=== PATIENT | male | born 1975 | race Caucasian/White ===

== ENCOUNTER 2019-04-15 23:32 | Emergency (ER) | payer OTHER, SELFPAY ==
[2019-04-15 23:33] VITALS: BP 127/79; PULSE 73; RESP 16; TEMP 36.5; O2SAT 98; BMI 25.1
--- NOTE | 2019-04-15 23:39 | ED.RN ---
SPOKE WITH COURTNEY BLACKMAN WITH [employer] WHO STATES THAT THIS PT DOES NOT REQUIRE DRUG SCREENING.
--- NOTE | 2019-04-15 23:41 | EKG12_ITS ---
Test Reason : ARHYTHMIA Blood Pressure : / mmHG Vent. Rate : 066 BPM Atrial Rate : 066 BPM P-R Int : 144 ms QRS Dur : 102 ms QT Int : 382 ms P-R-T Axes : 016 043 034 degrees QTc Int : 400 ms Normal sinus rhythm Normal ECG Confirmed by SABA WILCOX, VINI ([id number]), editorial project manager ION GARZA ([id number]) on 04/17/2019 1:29:51 PM Referred By: JOSE ENRIQUE Confirmed By:SUSSY WALTER MD
--- NOTE | 2019-04-15 23:45 | ED.RN ---
NO OLD EKGS IN MUSE
--- NOTE | 2019-04-15 23:51 | ED.DCSUM_ITS ---
- ER Visit Summary Date of Service: 04/15/19 Chief Complaint: Electric shock History of Present Illness: The patient is a 44 M presenting after electric shock. This occurred 2 hours prior to arrival. Patient was at work. He was changing a light fixture. He believes it was 110 V. He states the power was off. He sustained a brief shock to his left hand. He did not fall. He had no syncope. He denies chest pain. Denies numbness or tingling. Denies weakness. Denies complaints. He states his work requires EKG after any electric shock. Physical Examination: Vitals are stable. Patient is afebrile. Alert no acute distress. HEENT exam is unremarkable. Neck is supple. Lungs are clear and equal bilaterally. Heart is regular rate and rhythm. Abdomen is soft nontender nondistended. Extremities are unremarkable. Skin is warm and dry. No focal neurologic deficit. Normal strength and sensation Remainder of exam is unremarkable. Emergency Department Course and Treatment: EKG is sinus rhythm rate of 66 with no acute ischemic changes. Patient is asymptomatic in the ED. Advised to follow-up with corporate care as needed. Advised return to ED for worsening complaints. Disposition: Discharge home Impression: Electric shock This note was generated with [employer] dictation software. It may contain incorrect words, spelling, and punctuation that were not noted in review of the chart prior to signing ED Disposition - Plan for ED Patient: Referrals: Jyotsna Thomas DO [Primary Care Provider] -
--- NOTE | 2019-04-15 23:53 | DCINST.ED_ITS ---
ED Disposition - Plan for ED Patient: Instructions: Electrical Injury Referrals: Jyotsna Thomas DO [Primary Care Provider] - [facility] [GROUP OF PHYSICIANS] -
[2019-04-16 00:08] VITALS: BP 126/70; PULSE 76; RESP 18; O2SAT 97
== END 2019-04-16 00:09 | disposition home or self-care (01) ==
LOC: ED 04-16 00:03
PROVIDERS: Emergency Provider Emergency Medicine; Family Provider Internal Medicine; PCP Internal Medicine
DX: T75.4XXA Electrocution, initial encounter (principal); W86.8XXA Exposure to other electric current, initial encounter; Y93.9 Activity, unspecified; Y92.9 Unspecified place or not applicable
CPT/HCPCS: 93005; 99283

== ENCOUNTER 2020-02-26 14:30 | Outpatient (RCR) | payer OTHER, SELFPAY ==
--- NOTE | 2020-01-15 14:48 | HP.PTEVAL_ITS ---
Patient's Visit Information CARLOS PEREZ is a 44 year old M referred to Physical Therapy by Dr. Niyah Burciaga MD with a diagnosis of LEFT SHOULDER PAIN,FROZEN. Date of Evaluation: 01/15/20 Physical Therapist: Jim Abraham PT, Cert MDT, OCS - Visit Plan Frequency: 2x /Week Duration: 4 Weeks Plan: PATIENT APPEARED TO HAVE RTC TEAR. INTIALLY ROM,PROM,AAROM,MANUAL THERAPY,MODALTIES, PROGRESS RTC/SCAPUALR EX'S ABLE - Subjective This 44 y/o male presents to physical therapy with left shoulder pain,frozen. Patient had left shoulder pain about 1 weeks which has progressively worse. Patient symptoms became worse with intemttant symptoms and currently more contsant. Patient had x-rays -and mloxicam and injection shoulder. Recoommended PT. Agraveting factors any activity with OH above 90 degrees,ADL'S and hosuework task,inablity to raise arm at all.. Patient symptoms affects sleeping. No ho trauma inicidous onset of shoulder pain.Occassionally symptoms tingling. Patient pain affects QOL.Location AC and ache bicep. SOCIAL: single. VOCATION: layed off [employer] - Pain Left Shoulder Pain Intensity (Out of 10): 7 Pain Intensity Range: 10 - Objective POSTURE: mild foward postute. NEURO : intact ,reflexes ntact,mytomes. AROM: unable. PROM: pain flexion 100 degrees,abd 105 degrees,ER 25 degrees,all with pain. CAPSULAR RESTRICTION: mod tight. MMT: infraspaintous 1/5,supraspinatous 1/5 ,subscapularis 4-5/,deltoid 1/5. CERVICAL ROM: WFL - Special Tests C/S Radiculapathy - Left Upper limb tension test: Negative C/S Radiculapathy - Right Upper limb tension test: Negative C/S Radiculapathy - Left Spurlings: Negative C/S Radiculapathy - Right Spurlings: Negative L Shoulder External Rotation Lag Test - RC Tear: Positive L Shoulder Supine Impingement Test - RC Tear: Positive L Shoulder Drop Sign - IS Test: Positive L Shoulder Empty Can - SS: Positive L Shoulder Belly Press - SupScap: Negative L Shoulder Neer - Impingement: Positive L Shoulder Rutherford Bernardo - Impingement: Positive - Goals Goal 1:: Patient progress to JUAREZ. Goal Time Frame: 2-4 Weeks Goal 2:: Decrease pain left shoulder by 50% or > to improve function Goal Time Frame: 2-4 Weeks Goal 3:: Patient to improve ROM as april for function. Goal Time Frame: 2-4 Weeks Goal 4:: Patient to increase strength 3/5 to improve function. Goal Time Frame: 2-4 Weeks Goal 5:: Patient to inmpove quick dash by 5 points or> to improve QOL. Goal Time Frame: 2-4 Weeks - Rehabilitation Potential Physical Therapy Diagnosis: This patient has + signs of RTC ,+ drop test ,supr sapinatous,lift off weakness infraspintous,supraspinatous ,along with adhesive capsular pain with any activities with use of left shoulder no movement .Mytomes intact. Could benifit from MRI. Rehabilitation Potential: Fair - Anticipated Interventions Patient/Client Instruction: Educate patient on: Condition, Plan of Care For the Purpose of:: To decrease pain, To increase ROM, To improve nutrient delivery to tissue, To increase oxygenation perfusion, To improve muscle performance and motor function, To improve ability to perform ADL's, To improve health of tissue, To decrease soft tissue restriction, To increase flexibility/ROM, To improve tolerance to ADL's Therapeutic Exercise to Include: Strength training, Active ROM, Scapular Strength/Stabilization Comment: rtc/scapular For the Purpose of:: To decrease swelling/inflammation, To increase ROM, To improve ability to perform ADL's, To increase tolerance to activity/condition/position, To improve ability of physical actions for home/community/work/leisure, To improve health of tissue, To decrease soft tissue restriction, To improve ability to perform tasks related to life management Manual Therapy Techniques to Include: Mobilization, Passive ROM Comment: G-H For the Purpose of:: To decrease pain, To increase ROM, To improve nutrient delivery to tissue, To increase oxygenation perfusion, To improve health of tissue, To decrease soft tissue restriction TENS: Yes Other electric stimulation: Yes Thermo therapy (hot pack): Yes Ultrasound (thermal/non thermal): Yes For the Purpose of:: To decrease pain, To increase ROM, To improve nutrient delivery to tissue, To increase oxygenation perfusion Thank you for the opportunity to evaluate your patient. For Medicare and Medicare HMO plans, please review the plan of care and approve it. It will need to be FAXED BACK to us at [phone] for Medicare purposes. For Medicare only, by signing this I certify the plan of care. Please let me know if there are questions or concerns regarding this plan of care. Physician Signature: Date:
--- NOTE | 2020-06-24 10:53 | HP.PTDCSUM_ITS ---
It has been my pleasure to treat CARLOS PEREZ referred by Dr. Niyah Burciaga MD, with the diagnosis of LEFT SHOULDER PAIN,FROZEN for a total of 10 visit(s). Discharge Date: Please see the following information for a summary of their discharge status. Subjective: Doing good . Seen DR campos to see [facility]. Patient has return Left Shoulder Pain Intensity (Out of 10): 1 % Improvement: 80 Objective/Function: AROM: SHOULDER FLEXION 150 DEGREES,ABD 150 IN SCAPTION ER 90 degrees. MMT: RTC 4/5 exept supraspinatous4-/5,deltoid 4-/5 mild pain ,but does have + speeds with weakness and pain. patient has made excellant progress intiall evaluation Goal 1:: Patient progress to JUAREZ. Goal 2:: Decrease pain left shoulder by 50% or > to improve function Goal 3:: Patient to improve ROM as april for function. Goal 4:: Patient to increase strength 3/5 to improve function. Goal 5:: Patient to inmpove quick dash by 5 points or> to improve QOL. Plan: See ortho eventhogh doing well. MANUAL THERAPY,MODALTIES, PROGRESS RTC/SCAPUALR EX'S ,POSTURAL EX''S If there are questions or concerns regarding this patient's physical therapy, please feel free to call me at [phone]. Thank you for the referral of this patient. Sincerely, Jim Abraham, PT, Cert MDT, OCS
== END 2020-02-26 19:00 | disposition home or self-care (01) ==
LOC: PT 14:30
PROVIDERS: PCP Internal Medicine; Referring Provider Internal Medicine; Visit Provider Internal Medicine
DX: M25.512 Pain in left shoulder (principal)
CPT/HCPCS: 97014; 97035; 97110; 97140; 97161; G0283

== ENCOUNTER 2021-01-24 06:04 | Emergency (ER) | payer OTHER, SELFPAY ==
--- NOTE | 2021-01-24 06:05 | CT_ITS ---
STUDY: CT BRAIN WITHOUT CONTRAST REASON FOR EXAM: Male, 45 years old. Trauma RADIATION DOSAGE (If Supplied By Facility): CTDIvol = ( 44.99 ) mGy, DLP = ( 812.98 ) mGycm TECHNIQUE: Transaxial CT imaging of the brain was performed without administration of intravenous contrast material. Individualized dose optimization techniques were used for this CT. COMPARISON: 01/24/2021 CT facial bone FINDINGS: There is left side periorbital soft tissue edema and gas. There is gas bubbles anterior preseptal space and posterior to the left eye and intraconal space. Fracture line is not definitively visualized but suggested at the level of the medial orbit or lamina papyracea given the amount of gas formation demonstrated. There is a suggestion of defect in the left eyelid. Normal size ventricles and extra-axial spaces for the patient''s age. Normal white matter tracts of the cerebral hemispheres. Normal basal ganglia and thalami. Normal brainstem. Normal cerebellum. There is no intracranial hemorrhage. There are no findings of an acute ischemic infarction. Normal visualized paranasal sinuses. CT/Brain/Head without Contrast IMPRESSION: Left periocular gas formation and probable laceration in the superficial soft tissues. Question possible subtle fracture of the lamina papyracea. The visualized intraocular hemorrhage. Recommend consideration for ophthalmology consult. Electronically Signed: Margo Chandler MD at 6:47 EDT Tel , Service support ,
--- NOTE | 2021-01-24 06:05 | CT_ITS ---
STUDY: CT FACIAL BONES WITHOUT CONTRAST REASON FOR EXAM: Male, 45 years old. Trauma RADIATION DOSAGE (If Supplied By Facility): CTDIvol = ( 29.38 ) mGy, DLP = ( 591.53 ) mGycm TECHNIQUE: The patient was scanned in a multi detector CT scanner. Sagittal and coronal images were reconstructed. Individualized dose optimization techniques were used for this CT. COMPARISON: None. FINDINGS: There is left-sided periorbital superficial soft tissue edema and laceration. There is the level of the left thigh. There is gas and intraconal and extraconal spaces. There is a suggestion of possible fracture of the lamina papyraceous. The right ovary appears normal. There is no visually significant proptosis. Normal visualized paranasal sinuses. CT/Sinus/Facial Bone IMPRESSION: Extraconal gas soft tissue edema left eyelid laceration. No definitive intra-articular hemorrhage. Cannot exclude extension into the lamina papyracea. Electronically Signed: Margo Chandler MD at 6:51 EDT Tel , Service support ,
[2021-01-24 06:06] VITALS: BP 136/86; PULSE 77; RESP 16; TEMP 36.9; O2SAT 95; BMI 25.3
--- NOTE | 2021-01-24 06:10 | EDS_ITS ---
HPI History of Present Illness Chief Complaint: Eye Problem Informant: patient Onset/Context/Timing Location: Left Eye Onset: Today Current Severity: Moderate Maximum Severity: Moderate Associated Symptoms Associated Symptoms - Eyes: Burning, Foreign body sensation and Pain Visual Changes: left: Blurred vision History of injury: Yes and Direct trauma Narrative Narrative: Patient is a 45-year-old male with no significant medical history aside from cataract surgery the presents to the emergency department with left eye injury. 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 He states that he was taking parts off of hooks after they were painted. He states when he moved a hole, it lurched forward. It punctured into his eye and he suffered significant laceration. He does describe blurry and cloudy vision in that eye. Dressing was applied immediately and he was brought here. There is no loss of consciousness. He is not on anticoagulants. [facility] Medical History High triglycerides Home Medications NK 01/24/21 [History Last Taken Unknown] Allergy/AdvReac Type Severity Reaction Status Date / Time No Known Allergies Allergy Verified 04/15/19 23:32 Social History Smoking Status: Never smoker ROS ROS ED Constitutional Constitutional ED: Denies chills or fever(s) Eyes Eyes: Reports blurry vision and change in vision ENT ENT ED: Denies ear pain or sore throat Cardiovascular Cardiovascular: Denies chest pain or palpitations Respiratory/Chest Respiratory/Chest: Denies cough, dyspnea or dyspnea on exertion Gastrointestinal Gastrointestinal: Denies abdominal pain, nausea or vomiting Genitourinary Genitourinary ED: Denies dysuria or urinary frequency Musculoskeletal Musculoskeletal: Denies arthralgias or myalgias Integumentary Denies rash Neurologic Neurologic: Denies headache(s) or paresthesias Psychiatric Psychiatric: Denies anxiety or depression Endocrine Endocrinology: Denies polydipsia or polyuria Allergic/Immunologic Allergic/Immunologic ED: Denies urticaria EXAM Physical Exam Const Vital Signs: 01/24/21 06:06 Temperature 98.4 F Temperature Source Temporal Pulse Rate 77 Respiratory Rate 16 Blood Pressure 136/86 H Blood Pressure Mean 102 Pulse Ox 95 Oxygen Delivery Method Room Air Positive well nourished and well developed General Appearance ED: well developed HEENT Reports normocephalic, head/scalp atraumatic and moist mucous membranes Eyes PERRL and EOMs intact bilaterally Eyes Narrative: The patient has rather significant laceration with basic degloving of the entire left lid. The globe itself appears mildly sunken. There is no hyphema. There is persistent bleeding. The pupil is reactive. Neck no lymphadenopathy and supple General: Negative for tenderness Chest Wall inspection of chest normal Resp normal respiratory effort and clear to auscultation bilaterally Cardio regular rate, regular rhythm and no murmurs GI normal to inspection, nondistended, normoactive bowel sounds Palpation: Negative for tender, guarding or rebound tenderness present Back/Spine no CVA tenderness Cervical Spine: Negative for cervical spine tenderness Thoracic Spine / Upper Back: Negative for thoracic spinal tenderness Extremity normal to inspection General Extremety ED: Negative for tenderness Neuro oriented x3 and CN's II-XII intact bilaterally Neuro Narrative: No focal deficits appreciated. Sensorium / Orientation: alert Psych mental status grossly normal Skin no rashes or lesions noted, no wounds and skin turgor normal MDM MDM MDM Narrative Medical decision making narrative: Patient presents with globe injury. There is also significant injury to the eyelid itself. I immediately discussed the patient with [facility] for transfer as he is going to need emergent ophthalmology evaluation due to concern for globe rupture. Unfortunately, we were not able to confirm that they have ophthalmology coverage. Because of this, I did elect to transfer the patient to [facility]. He was discussed with Dr. Crowell the trauma surgeon. The patient was accepted. CT images were done and reads are currently pending. The patient be transferred i mmediately for trauma and ophthalmology evaluation. Impression 1. Complex eye laceration 2. Globe injury Discharge Plan Triage Chief Complaint: Eye Problem ED Provider: Momo Christianson Dx/Rx/DC Orders Prescriptions: No Action NK RF: 0 Primary Care Provider: Jyotsna Thomas
[2021-01-24] MEDS: Morphine 4 MG/ML Syringe IV (06:16)
[2021-01-24] MEDS: Ondansetron 4 MG/2 ML Vial IV (06:16)
[2021-01-24 06:55] VITALS: BP 136/86; PULSE 77; RESP 16; TEMP 36.9; O2SAT 95
== END 2021-01-24 07:02 | disposition short-term general hospital (02) ==
LOC: ED 06:57
PROVIDERS: Emergency Provider Emergency Medicine; PCP Internal Medicine
DX: S05.32XA Ocular laceration without prolapse or loss of intraocular tissue, left eye, initial encounter (principal); S01.112A Laceration without foreign body of left eyelid and periocular area, initial encounter; W45.8XXA Other foreign body or object entering through skin, initial encounter; Y93.9 Activity, unspecified; Y92.9 Unspecified place or not applicable
CPT/HCPCS: 70450; 70486; 96374; 96375; 99285; J2405

== ENCOUNTER 2022-05-31 10:00 | Outpatient (RCR) | payer BC, SELFPAY ==
--- NOTE | 2022-04-25 16:03 | HP.PTEVAL_ITS ---
Patient's Visit Information CARLOS PEREZ is a 47 year old M referred to Physical Therapy by Dr. Jyotsna Thomas DO with a diagnosis of LBP. Date of Evaluation: 04/25/22 Physical Therapist: Samir Navarro, SIDT, OCS, CSCS - Visit Plan Frequency: 2x /Week Duration: 4-6 Weeks Plan: 2x/week for 4-6 weeks... please rollout and stretch/teach stretches for B quads and HS. core strength via exercises pt can do at home and progress to home I. Ext bias ROM to LB and mobs as needed. may use TENS if needed - Subjective LBP chronic for years since HS. Not sure why it hurts. X ray: nothing there. This can be daily and then may go away for a while. Sleeping is fine but morning is stiff and sore. Lying down can hurt. 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 Feels stiff. Hobbies include working on house and running. These are normal perfomrance but do not make him worse. He focuses on his body mechanics. Activities at home are normal. Not sure what the pattern is . Stiff and painful to get to standing if he has been sitting a while. no regular exercises. Therapy did not completely take care of it in the past. No leg symptoms, intermittent tingling R thigh. No bowel or bladder problems. - Pain LBP Pain Intensity (Out of 10): 0 Pain Intensity Range: 0, 4 - Objective Walks and transition I, steps I. reflexes 2.3 patella and achilles. Sensation LE WNL to gross lgiht touch. LE strength 4- abd and ext, 4 knee flex/ext, hi pext and ankles, no myotomal problems. LB AROM, extension is mod limited and painful central, flexion is not limited, SB are not limited. Stiff and sore for a second getting up from chair. - SLR. - SLump. Hs and quads into psoas max tight. - Balance/Special Test Scores Oswestry Low Back Score: 1 - Goals Goal 1:: Patient feel back pain 75% better and 1/10 at worst Goal Time Frame: 4-6 Weeks Goal 2:: Oswestry score 0 Goal Time Frame: 4-6 Weeks Goal 3:: Pt I in appropriate stretch and strength and activitiy modification/posture to manage chronic LBP Goal Time Frame: 4-6 Weeks - Rehabilitation Potential Physical Therapy Diagnosis: LBP chronic likely disc related . Rehabilitation Potential: Good - Anticipated Interventions Patient/Client Instruction: Educate patient on: Condition, Plan of Care For the Purpose of:: To decrease pain, To increase ROM, To improve muscle performance and motor function, To improve performance and independence with ADL's, To improve ability of physical actions for home/community/work/leisure Therapeutic Exercise to Include: Strength training, Postural training, Flexibilty training, Passive ROM, Active ROM, Dynamic Lumbar Stabilization For the Purpose of:: To decrease pain, To increase ROM, To improve nutrient delivery to tissue, To improve muscle performance and motor function, To improve gait and locomotor functions Manual Therapy Techniques to Include: Mobilization, Passive ROM, Soft tissue mobilization For the Purpose of:: To decrease pain, To increase ROM TENS: Yes Thermo therapy (hot pack): Yes For the Purpose of:: To decrease pain Thank you for the opportunity to evaluate your patient. For Medicare and Medicare HMO plans, please review the plan of care and approve it. It will need to be FAXED BACK to us at [phone] for Medicare purposes. For Medicare only, by signing this I certify the plan of care. Please let me know if there are questions or concerns regarding this plan of care. Physician Signature: Date:
--- NOTE | 2022-05-31 10:41 | HP.PTDCSUM ---
It has been my pleasure to treat CARLOS PEREZ referred by Dr. Jyotsna Thmoas DO, with the diagnosis of LBP for a total of 8 visit(s). Discharge Date: 05/31/22 Please see the following information for a summary of their discharge status. Subjective: Feels much looser. Much less stiffness. Intermittent now and mornings are much better.75% better, Pain is centrally in LB. Sleep is fine. Activities are pretty normal. Does manage by changing positions at home. No f/u with doctor. HEP : compliant. Impriving and wants to continue on his own. LBP Pain Intensity (Out of 10): 2 % Improvement: 75 Objective/Function: Full aROM LB with just some tightness centrally end range extension improved with PA mobs. Walks well adn normal. Steps reciprocal without rail. Moving confidently and feels ready to cotninue on his own. Goal 1:: Patient feel back pain 75% better and 1/10 at worst Goal Progress: Progressing Goal 2:: Oswestry score 0 Goal Progress: 1 progressing Goal 3:: Pt I in appropriate stretch and strength and activitiy modification/posture to manage chronic LBP Goal Progress: Goal Met Plan: /c to HEP If there are questions or concerns regarding this patient's physical therapy, please feel free to call me at [phone]. Thank you for the referral of this patient. Sincerely, Saimr Navarro, DPT, OCS, CSCS Balance/Gait/Functional tests - Balance/Special Test Scores Oswestry Low Back Score: 1
== END 2022-05-31 19:00 | disposition home or self-care (01) ==
LOC: PT 10:00
PROVIDERS: PCP Internal Medicine; Referring Provider Internal Medicine; Visit Provider Internal Medicine
DX: I95.9 Hypotension, unspecified (principal)
CPT/HCPCS: 97110; 97161; 97164

== ENCOUNTER 2022-06-13 12:27 | Outpatient (CLI) | payer BC, SELFPAY ==
--- NOTE | 2022-06-13 12:29 | CT_ITS ---
STUDY: CARDIAC CALCIUM SCORING - CT CHEST Overread. REASON FOR EXAM: Male, 47 years old. DIABETES RADIATION DOSAGE (If Supplied By Facility): CTDIvol = ( 12.19 ) mGy, DLP = ( 243.79 ) mGycm TECHNIQUE: Axial non-enhanced images were acquired through the heart for the sole purpose of measuring coronary artery calcium. Individualized dose optimization techniques were used for this CT. COMPARISON: None. FINDINGS: Small benign-appearing bilateral axillary lymph nodes. Mild increased markings at the lung bases suggestive of either linear atelectasis and/or scarring. Small mediastinal lymph nodes. Coronary artery calcification of the circumflex artery as well as the LAD and right coronary artery. CT/Limited Chest CT Cardiac Only IMPRESSION: Coronary artery calcification. Mild increased markings at the lung bases suggest bibasilar linear atelectasis and/or scarring. Please go to: [email or web address] , for a description of the calculator. Electronically Signed: Dom Montes MD at 13:14 [facility] ,
[2022-06-13 12:40] VITALS: BP 104/62; PULSE 67; RESP 16; TEMP 36.1; O2SAT 98; BMI 26.5
--- NOTE | 2022-06-13 13:56 | CA.SCORE ---
Calcium Scoring Date of Study:: 06/13/22 Coronary Calcium Scoring: High-resolution Computed Tomographic imaging of the chest was performed on [06/13/2022], with particular attention paid to the coronary arteries. Images from the examination were analyzed for the presence and extent of coronary artery calcification , using coronary calcium quantification software. The patient tolerated the procedure well and there were no complications. The results of the coronary calcification analysis are provided below. Findings Coronary Artery Left Main (LM): 0 Left Anterior Descending (LAD): 20 Left Circumflex (LCX): 1 Right Coronary Artery (RCA): 13 Total Agatston Score: 34 Percentile Rankinth-75th Calcium Scoring Interpretation: 0 No identifiable atherosclerotic plaque. Very low cardiovascular disease risk. <5% chance of presence coronary artery disease A Negative Examination 1-10 Minimal Plaque burden. Significant coronary artery disease very unlikely. 11-100 Mild plaque burden. Likely mild or minimal coronary atherosclerosis. 101-400 Moderate plaque burden Moderate non-obstructive coronary artery disease highly likely. Over 400 Extensive plaque burden. High likelihood of at least one significant coronary stenosis (>50% diameter)
== END 2022-06-13 23:59 | disposition home or self-care (01) ==
PROVIDERS: PCP Internal Medicine; Referring Provider Internal Medicine; Visit Provider Internal Medicine
DX: E11.9 Type 2 diabetes mellitus without complications (principal)
CPT/HCPCS: 75571; 76380